=== PATIENT | female | born 1950 | race Two or more races ===

== ENCOUNTER 2025-03-02 14:42 | Observation (INO) | payer MEDICARE, OTHER, SELFPAY ==
--- NOTE | 2025-03-01 12:28 | EKG_ITS ---
[facility] Test Date: 2025-03-01 Pat Name: YAMILET PADILLA Department: Room: - Gender: Female Events Manager: [facility] : 1950 Requested By: Vladimir Dai Order Number: [id number] Reading MD: Vladimir Dai Measurements Intervals [place] Rate: 70 P: 54 [place]: 177 QRS: 33 QRSD: 96 T: 33 QT: 383 QTc: 414 Interpretive Statements SINUS RHYTHM No previous ECG available for comparison /[id number]/[id number]
[2025-03-01 13:26] VITALS: BMI 33.5
[2025-03-01 15:14] LABS: Basophils # (Auto) 0.1 Thou/mm3 (0.0-0.2); Basophils % (Auto) 1 % (0-2.5); Eosinophils # (Auto) 0.4 Thou/mm3 (0.0-0.5); Eosinophils % (Auto) 5 % (0-10); Hematocrit 39.1 % (36.0-46.0); Hemoglobin 13.3 g/dL (12.0-16.0); Immature Granulocytes Auto 0.04 Thou/mm3 (0.00-0.00); Lymphocytes # (Auto) 2.9 Thou/mm3 (1.0-4.8); Lymphocytes % (Auto) 32 % (10-50); Mean Corpuscular HGB Conc 34.0 g/dl (31.0-37.0); Mean Corpuscular Hemoglobin 29.0 pg (25.0-35.0); Mean Corpuscular Volume 85 fL (80-100); Monocytes # (Auto) 0.7 Thou/mm3 (0.0-0.8); Monocytes % (Auto) 8 % (0-12); Neutrophils # (Auto) 5.0 Thou/mm3 (1.8-7.7); Neutrophils % (Auto) 55 % (37-80); Nucleated Red Blood Cell # 0.00 Thou/mm3 (0.00-0.00); Nucleated Red Blood Cell % 0 /100 WBC (0); Platelet Count 232 Thou/mm3 (140-440); RDW Standard Deviation 40.7 fL (36.4-46.3); Red Blood Count 4.58 Miln/mm3 (4.00-5.20); White Blood Count 9.1 Thou/mm3 (3.6-11.0)
[2025-03-01 15:23] LABS: INR 1.1 (0.9-1.3); Partial Thromboplastin Time 26.3 Seconds (22.0-36.0); Prothrombin Time 11.5 Seconds (9.0-12.2)
[2025-03-01 15:27] LABS: Alanine Aminotransferase 66 U/L (10-49); Albumin, Serum 4.6 gm/dL (3.4-4.8); Albumin/Globulin Ratio 2.1 (1.2-2.2); Alkaline Phosphatase 91 U/L (46-116); Anion Gap 11 (7-16); Aspartate Amino Transferase 57 U/L (0-34); BUN/Creatinine Ratio 16 Ratio (12-20); Bilirubin,Total 0.5 mg/dL (0.3-1.2); Blood Urea Nitrogen 13 mg/dL (9-23); Calcium 10.0 mg/dL (8.3-10.6); Calcium (Corrected) 10.0 mg/dL (8.5-10.1); Carbon Dioxide 27.0 mMol/L (20.0-31.0); Chloride 107 mMol/L (98-107); Creatinine (Component) 0.8 mg/dL (0.6-1.3); Estimated Creatinine Clearance 49.9 mL/min (>60); Globulin 2.2 gm/dL (2.3-3.5); Glucose 100 mg/dL (74-106); Osmolality,Calculated 288 (275-295); Potassium 4.2 mMol/L (3.4-5.1); Sodium 145 mMol/L (136-145); Total Protein 6.8 gm/dL (5.7-8.2); eGFR > 60 See Note
[2025-03-02] VITALS (19 sets, daily range): BP systolic 136–173; BP diastolic 67–97; PULSE 70–87; RESP 12–18; TEMP 36.1–36.7; O2SAT 95–100; BMI 33.4; BMI 34.7
--- NOTE | 2025-03-02 07:24 | SUR.PREOP ---
Patient expressed gratitude for prayer before their procedure.
--- NOTE | 2025-03-02 10:59 | XR_ITS ---
Examination: Knee, right, 3 views Technique: Knee AP, lateral, oblique 3 views Date and time of exam: March 02, 2025, 1143 hours INDICATION: Postop knee replacement. FINDINGS: Total right knee replacement. Satisfactory alignment No fracture IMPRESSION: Total right knee replacement with satisfactory alignment
--- NOTE | 2025-03-02 11:00 | PD.SUROPNT ---
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 Femur size 5 narrow Tibial baseplate size C Polyethylene size 11 mm MC Patellar size 26 mm Findings Patient has significant DJD of the right knee joint. The medial joint space was completely absent. There are significant osteophytes present in all the compartments. The articular surface was significantly eroded. Patient had genu varum deformity Procedure Description The patient was given a [spinal]/general anesthesia. Once satisfactory anesthesia was achieved a tourniquet was placed on right upper thigh. Intravenous antibiotics was given at the time of anesthesia. Knee block was also given The patient was thoroughly prepped and draped. After using Esmarch the tourniquet pressure was raised to 350 mmHg. A skin incision was made 2 inches proximal to the upper pole of patella going as far down as up to the medial aspect of the tibial tuberosity. The skin was raised as a flap on the site. The bleeding vessels were electrocoagulated as and when encountered. The quadriceps tendon, medial border of the patella and the patellar tendon along the medial aspect of the tibial tuberosity was incised and reflected. The patellar tendon was reflected as much as needed to miriam the patella. The soft tissue from the upper medial border of the tibia was reflected to correct her genu varum deformity. The osteophytes from the bones were removed. The knee joint was flexed. The anterior cruciate ligament, medial and lateral meniscus were excised. Next para drill hole was made to the inferior surface of the femur. Following that a swab was placed. A 4?? of abduction was already put into it. Following that a cutting block for the inferior cut of the femur was placed and nicely secured with the pins. The sword was removed. The inferior cut of the femur was made and after that the cutting block was removed. Following that a sizer was placed. A decision was made to use size [5] femur implant. 2 drill holes each in 3?? of external rotation were made. The sizer was removed. Size [5] cutting block was placed. Following that anterior, posterior, anterior chamfer and posterior chamfer cuts were made. The cutting block was removed. The knee joint was extended and a 10 mm trial plastic was placed and the intended level of the tibial cut was marked. The knee joint was flexed. With the help of double-pronged the tibia was displaced anteriorly. An extramedullary jig for the cutting block placement of the tibia was placed. The mechanical axis of the zig was parallel to the mechanical axis of the tibia. Following that the tibial cutting block was placed at the desired level and was secured nicely with the help of pins. Following that the tibial cut was made. In this case was posterior cruciate ligament was saved. The cutting block was removed. The spacer was placed and a decision was made to use size [11] polyethylene. The sizing of the tibial baseplate was done and the decision was made to use size [C] tibial baseplate. Following that size [5 saw what I doing good good yes] trial femur implant was placed in lateralized position and size [C] tibial tibial baseplate along with size [11 yes I know] plastic was placed in knee joint was flexed and extended quite a few times and tibial baseplate was allowed to sit wherever it wanted to. The markings were made for the tibial baseplate. 2 drill holes were made for the inferior surface of the femur trial implant. The trial implant was removed and tibial baseplate was placed again with the help of pins. The collar was placed and superior hole was drilled. Following that a fin cut was made. The patella was reamed with [26] mm diameter reamer. [12] mm thickness was left. A collar was placed and 3 drill holes were made. All the trial implant was placed and patellar tracking was checked and found to be good. The wound was irrigated with antibiotic solution every 4-5 minutes. Now the power lavage antibiotic solution was used. The knee joint was flexed. The bone were made dry. The cement was mixed. With the help of cement the tibial baseplate was mounted. The excess cement was removed. The femur implant was placed and trial plastic was placed and knee joint was extended. Patella was also mounted with the help of cementing. Excess cement was removed. Osteophytes from the patella was removed at this time. Once the cement was set the tourniquet pressure was released. The bleeding vessels were electrocoagulated. The trial plastic was removed and 11 mm MC ultra high molecular weight polyethylene was placed. Closure The quadriceps tendon was closed with the help of 1 strata fix in continuous fashion. The fat layer was closed with 2 strata fix in continuous fashion. The skin was closed with subcuticular Monocryl. The wound was cleaned with hydrogen proximal solution and a sterile dressing was applied. Prineo tape was applied. Patient tolerated procedure very well. Estimated blood loss [25] mL. Prognosis in this case is good. This was taken to the recovery room in good condition. Anesthesia GETA Pathology / specimen None Estimated Blood Loss 25 Surgeon Vladimir Powers MD Surgical Staff Operation Date: 03/02/25 09:00 Case Staff Anesthesiologist: Woodrow Dillon RNcrown presser: Kimberly Carbajal
--- NOTE | 2025-03-02 11:32 | SUR.PHASEI ---
1132: Pt. wakes to name then drifts back to sleep, vital stable, breathing unlabored, no complaint of pain or nausea, dressing to right knee CDI, no active bleed noted, bilateral dorsalis pedis pulses strong and regular, cap refill to bilateral feet less than 3 seconds, pt. able to move bilateral legs, report received from Gia EDWARDS and MD Dillon.
--- NOTE | 2025-03-02 11:37 | ESHP_ITS ---
RE: YAMILET PADILLA : 1950 DATE OF ADMISSION: 03/02/2025 Patient came to my [place] office on Wednesday, the 02/26/2025 for detailed preop history and physical examination. HISTORY OF PRESENT COMPLAINT: As per history available, patient has significant pain in the right knee joint. This is going on for last few years but 1-2 years extremely painful. Patient graded intensity of pain to be 7-8 out of 10. Unable to sleep. Unable to walk more than 100 yards or so. Pain keeps her awake at night. Conservative treatment did not help her. X-ray of the right knee revealed severe DJD with absent medial joint space and patellofemoral joint space. Significant osteophyte formation. Quality of life and activity of daily living is affected. PAST MEDICAL HISTORY: Patient has history of high blood pressure and high cholesterol. There is no history of diabetes mellitus, asthma, seizure, chest pain, myocardial infarction, or bleeding disorder, or stroke. PAST SURGICAL HISTORY: Nil. DRUG HISTORY: The patient is taking; 1. Acetaminophen. 2. Atorvastatin. 3. Losartan. 4. Meloxicam 15 mg oral. ALLERGIES: NIL KNOWN. FAMILY HISTORY AND SOCIAL HISTORY: Patient denies smoking, drinking and is not working. PHYSICAL EXAMINATION: GENERAL: Normal built lady. VITAL SIGNS: Patient's pulse is 77 per minute and blood pressure is 142/76. NECK: Soft, supple. No mass felt. Trachea is centrally placed. CARDIOVASCULAR SYSTEM: First and 2nd heart sounds normal. No murmur heard. RESPIRATORY SYSTEM: Bilateral vesicular breath sounds. Chest clear. ABDOMEN: Soft, scaphoid. No mass felt. Bowel sounds present. BREAST: Not indicated in this case. Patient is advised to see the family physician for regular examination. EXTREMITIES: Right knee examination revealed 1+ swelling. There is 2+ tenderness along the joint line. Active range of motion 0 to 100 degrees of flexion. Patellofemoral crepitus is present. Patient has significant varus deformity. Patient walks with a limp. Neurovascularly, it is intact. X-ray confirmed severe osteoarthritic changes with almost total absence of medial joint space and patellofemoral joint space. Since patient is symptomatic and is affecting quality of life and activity of daily living therefore right total knee replacement was discussed and advised. With the help of pictures, diagram, and posters it was explained to her in detail. Risks with anesthesia was explained and that includes but not limited to reaction to anesthetic agents, cardiac arrest, and rarely it might be fatal. Risks with operation includes infection and if that happens patient may need further surgical procedure. Other risks include deep venous thrombosis, pulmonary embolism, which rarely might be fatal. There is a risk of loosening of the implant and/or fracture at the proximal and/or distal end of the prosthesis. Sometimes, there is a risk of paresis, nerve damage. No guarantee is given about the functional outcome and/or pain relief and patient is fully aware of that. Accordingly surgery is booked for 03/02/2025. Appropriate lab work is done. Patient is also cleared for surgical procedure. DT: 11:11:30 TT: 11:36:00 Ref: [id number] - TID: [id number]
--- NOTE | 2025-03-02 12:03 | SUR.PHASEII ---
XR TAKEN, PT. TOLERATED WELL.
--- NOTE | 2025-03-02 12:21 | SUR.PHASEII ---
pt lying in bed with eyes closed, awakens to voice and responds appropriately, denies pain, breathing unlabored, dressing to right lower extremity clean, dry, and intact, bilateral pedal pulses present/strong/equal bilaterally, report from Sowmya EDWARDS
--- NOTE | 2025-03-02 12:43 | SUR.PHASEII ---
pt able to tolerate oral fluids without difficulty swallowing or n/v
--- NOTE | 2025-03-02 12:53 | SUR.PHASEII ---
Report to Sowmya EDWARDS
--- NOTE | 2025-03-02 13:11 | SUR.PHASEII ---
Pt. started to complain of her right arm hurting, assessed pt. arm and noted red spots throughout her arm that look similar to the daniela the blood pressure cuffs makes after squeezing too much/hard. Vega do not appear raised, and does not look like an allergic reaction. Notified Charge Nurse Cat, and we both think it is from the blood pressure cuff. Will notify MD Dillon once he is out of surgical case so he can come and assess red spots on right arm. Blood pressure cuff switched to left arm, and pt. was educated to keep left arm still when the blood pressure cuff squeezes.
--- NOTE | 2025-03-02 13:23 | SUR.PHASEII ---
Pt. Daughter noticed pt. right arm was a little red and stated it wasn't red prior to surgery, assessed pt. arm and noted red spots throughout her arm that look similar to the daniela the blood pressure cuffs makes after squeezing too much/hard. Vega do not appear raised, and does not look like an allergic reaction. Notified Charge Nurse Cat, and we both think it is from the blood pressure cuff. Notified MD Powers and he stated it looks like it is from the blood pressure cuff, MD Powers stated she will be fine and wasn't concerned about it.
--- NOTE | 2025-03-02 14:40 | SUR.PHASEII ---
1440: Pt. AAOx4, vital stable, breathing unlabored, no complaint of pain or nausea, dressing to right knee CDI, no active bleed noted, bilateral dorsalis pedis pulses strong and regular, cap refill to bilateral feet less than 3 seconds, pt. able to move bilateral legs, pt. tolerated sips of water and bites of jello well, gave report to Bridgett EDWARDS prior to transfer to room, family made aware of transfer, pt. transferred with all personal belongings.
[2025-03-02] MEDS: ceFAZolin/D5W 1 GM IVPB 1 GM/50 ML BAG IV (17:22)
--- NOTE | 2025-03-02 17:50 | PC.NURSE ---
DR. BRANDEN BOB TO RESUME PTS HOME MEDICATIONS. DRESSING CHANGE WILL BE DONE OUTPATIENT IN HIS OFFICE.
[2025-03-02] MEDS: ATORVASTATIN CALCIUM 20 MG TABLET 40 MG PO (21:10)
[2025-03-02] MEDS: LOSARTAN POTASSIUM 25 MG TABLET 50 MG PO (21:11)
[2025-03-03] VITALS (8 sets, daily range): BP systolic 118–167; BP diastolic 63–76; PULSE 68–84; RESP 15–18; TEMP 36.2–36.9; O2SAT 94–99
[2025-03-03] MEDS: ceFAZolin/D5W 1 GM IVPB 1 GM/50 ML BAG IV (02:04)
[2025-03-03 06:24] LABS: Basophils # (Auto) 0.0 Thou/mm3 (0.0-0.2); Basophils % (Auto) 0 % (0-2.5); Eosinophils # (Auto) 0.0 Thou/mm3 (0.0-0.5); Eosinophils % (Auto) 0 % (0-10); Hematocrit 33.9 % (36.0-46.0); Hemoglobin 11.4 g/dL (12.0-16.0); Immature Granulocytes Auto 0.06 Thou/mm3 (0.00-0.00); Lymphocytes # (Auto) 1.5 Thou/mm3 (1.0-4.8); Lymphocytes % (Auto) 11 % (10-50); Mean Corpuscular HGB Conc 33.6 g/dl (31.0-37.0); Mean Corpuscular Hemoglobin 28.9 pg (25.0-35.0); Mean Corpuscular Volume 86 fL (80-100); Monocytes # (Auto) 1.2 Thou/mm3 (0.0-0.8); Monocytes % (Auto) 9 % (0-12); Neutrophils # (Auto) 11.2 Thou/mm3 (1.8-7.7); Neutrophils % (Auto) 80 % (37-80); Nucleated Red Blood Cell # 0.00 Thou/mm3 (0.00-0.00); Nucleated Red Blood Cell % 0 /100 WBC (0); Platelet Count 190 Thou/mm3 (140-440); RDW Standard Deviation 41.1 fL (36.4-46.3); Red Blood Count 3.95 Miln/mm3 (4.00-5.20); White Blood Count 14.0 Thou/mm3 (3.6-11.0)
[2025-03-03] MEDS: LOSARTAN POTASSIUM 25 MG TABLET 50 MG PO (08:36)
[2025-03-03] MEDS: MORPHINE SULF INJ 4 MG/ML VIAL IVP ×2 (08:39→14:37)
--- NOTE | 2025-03-03 12:01 | PC.PT ---
Patient is safe to ambulate to the bathroom and in the halls with 1 staff assist and a FWW. RN made aware.
--- NOTE | 2025-03-03 12:18 | PC.SS ---
Patient is a 74 year old female presenting to the hospital for surgery, RT knee. ARTIFICIAL SNOW MAKING MACHINE OPERATOR met with patient, patient daughter and son at bedside. Patient gave consent for guest to remain in the room. ARTIFICIAL SNOW MAKING MACHINE OPERATOR introduced self, role, and reason for visit. Patient confirmed demographic information and stated that she lives at home with her daughter. Patient stated that she does not use oxygen at home, she has four point walker. Patient stated that her PCP is Dr. Joselin James in [place] and her last visit was 02/27/25. Patient stated that she will be following up with PT in [place], and [facility] in [place] is her pharmacy of choice. Patient stated that once medically clear she will return home and family will provide transportation. In case she is unable to make medical decisions on her own patient stated that she would like her daughter Nolvia to make them PH: [phone]. Decision maker: Nolvia Moelleres [phone] d/c: home PCP: Dr. Joselin Bill
--- NOTE | 2025-03-08 15:20 | ESPR_ITS ---
Documentation for date of: 03/08/25 POST ANESTHESIA NOTE: Patient had GETA and R femoral block for R TKA on 03/02/25. I just called and spoke with her on the phone via developmental behavioral physician and she denied any problems from anesthesia. Woodrow Dillon MD Anesthesia Progress Note Progress Note Most recent Vital Signs: Last Vital Signs Temp 98.4 F 03/03/25 16:00 Pulse 73 03/03/25 16:35 Resp 16 03/03/25 16:35 BP 135/63 H 03/03/25 16:00 Pulse Ox 97 03/03/25 16:35 O2 Del Method Room Air 03/03/25 16:00 O2 Flow Rate 2 03/03/25 16:35
== END 2025-03-03 16:30 | disposition home or self-care (01) ==
LOC: S3SX 15:25
PROVIDERS: Anesthesiology; Admitting Provider Orthopaedic Surgery; Referring Provider Orthopaedic Surgery; Visit Provider Orthopaedic Surgery
PROC: (CPT 27447; principal; 2025-03-02 09:00)
DX: M17.11 Unilateral primary osteoarthritis, right knee (principal); M25.761 Osteophyte, right knee; M21.161 Varus deformity, not elsewhere classified, right knee; Z01.810 Encounter for preprocedural cardiovascular examination
CPT/HCPCS: 27447; 36415; 73562; 80053; 85025; 85610; 85730; 86850; 86900; 86901; 86923; 87081; 93005; 96374; 97162; A4217; A4649; C1776; G0378; J0131; J0689; J0690; J1100; J1171; J1580; J2250; J2270; J2371; J2405; J2704; J2795; J3010; J3490; A9270; J1805